=== PATIENT | female | born 1975 | race Two or more races ===

== ENCOUNTER 2021-10-29 11:26 | Emergency (ER) | payer OTHER ==
[2021-10-29 12:34] LABS: BILIRUBIN NEGATIVE (NEGATIVE); BLOOD NEGATIVE Ery/uL (NEGATIVE); CLARITY CLEAR (CLEAR); COLOR YELLOW (YELLOW); GLUCOSE (U) NORMAL (NORMAL); LEUKOCYTES NEGATIVE Leu/uL (NEGATIVE); NITRITE NEGATIVE (NEGATIVE); PROTEIN NEGATIVE (NEGATIVE); SPECIFIC GRAVITY 1.025 (1.001-1.030); UROBILINOGEN 0.2 mg/dL (0.2-1.0)
[2021-10-29 12:34] LABS: BASOPHIL 0.6 % (0-2); HCT 43.6 % (37.0-47.0); HGB 13.9 g/dl (12.5-16.0); LYMPHOCYTE 14.3 % (15-48); MCH 28.5 pg (25.0-31.0); MCHC 31.9 g/dL (32.0-36.0); MCV 89.5 fL (78.0-100.0); MONOCYTE 6.6 % (0-12); MPV 9.7 fL (6.0-9.5); NEUTROPHIL 74.9 % (41-80); NRBC 0; PLT 356 K/uL (150-400); RBC 4.87 M/uL (4.20-5.40); RDW 13.7 % (11.5-14.0); WBC 11.6 K/uL (4.0-10.5)
[2021-10-29 12:49] LABS: ALBUMIN 3.3 g/dL (3.4-5.0); BILIRUBIN - TOTAL 0.3 mg/dL (0.2-1.0); BUN/CREAT RATIO (CALC) 16.9 RATIO; CREATININE 0.71 mg/dL (0.51-0.95); POTASSIUM 3.9 mmol/L (3.5-5.1); TOTAL PROTEIN 7.3 g/dL (6.4-8.2)
[2021-10-29] MEDS ORDERED: MIRALAX17 GM PO (14:18)
== END 2021-10-29 14:31 | disposition home or self-care (01) ==
LOC: FER 11:26
PROVIDERS: Emergency Medicine
DX: K62.5 Hemorrhage of anus and rectum (principal); K59.00 Constipation, unspecified; R10.9 Unspecified abdominal pain; J45.909 Unspecified asthma, uncomplicated
CPT/HCPCS: 36415; 80053; 81003; 82270; 83690; 85025